=== PATIENT | male | born 1985 | race Caucasian/White ===

== ENCOUNTER 2018-04-28 18:28 | Emergency (ER) | payer MEDICAID ==
[~2018-04-28] VITALS: Ht 175.3 cm; Wt 81.5 kg
[2018-04-28 18:50] VITALS: BP 143/74
[2018-04-28] MEDS ORDERED: HYDR25TA PO (18:54)
[2018-04-28] MEDS ORDERED: CLON.3 PO (18:54)
[2018-04-28] MEDS ORDERED: IBUPROFEN 600 MG TABLET PO ONE (19:00)
== END 2018-04-28 19:59 | disposition home or self-care (01) ==
LOC: EMS 18:31
DX: S62.309A Unspecified fracture of unspecified metacarpal bone, initial encounter for closed fracture (principal); M25.511 Pain in right shoulder; M79.671 Pain in right foot; M79.672 Pain in left foot; I10 Essential (primary) hypertension; F17.210 Nicotine dependence, cigarettes, uncomplicated; F12.90 Cannabis use, unspecified, uncomplicated
CPT/HCPCS: 99284